=== PATIENT | female | born 1955 | race Caucasian/White ===

== ENCOUNTER → 2023-08-30 07:43 | Outpatient (REF) | payer MEDICARE, BC, SELFPAY | LOC: HWRAD 07:43 | PROVIDERS: ATTENDING PHYSICIAN Internal Medicine Gastroenterology; FAMILY PHYSICIAN Family Medicine | DX: K76.0 Fatty (change of) liver, not elsewhere classified (principal) | CPT/HCPCS: 76700 ==

== ENCOUNTER → 2023-10-18 11:08 | Outpatient (REF) | payer MEDICARE, BC, SELFPAY ==
[2023-10-18 16:07] LABS: % Basophils 0.3 % (0-2); % Eosinophils 1.3 % (0-6); % Immature Granulocytes 0.1 % (0-0.5); % Lymphocytes 35.5 % (20.5-51.1); % Monocytes 11.2 % (1.7-9.3); % Neutrophils 51.6 % (42.2-75.2); Absolute Eosinophils 0.1 10^3/uL (0-0.7); Absolute Lymphocytes 2.5 10^3/uL (1.2-3.4); Absolute Monocytes 0.8 10^3/uL (0.1-0.6); Absolute Neutrophils 3.6 10^3/uL (1.4-6.5); Hematocrit 47.2 % (37.0-47.0); Hemoglobin 15.9 g/dL (12.0-16.0); Mean Corp Hgb Conc. 33.7 g/dL (33.0-37.0); Mean Corpuscular Hgb 31.5 pg (27.0-31.0); Mean Corpuscular Volume 93.5 fL (81.0-99.0); Mean Platelet Volume 10.4 fL (7.4-10.4); Nucleated Red Blood Cells % 0 %; Platelet Count 234 10^3/uL (130-400); Red Blood Cell Count 5.05 10^6/uL (4.20-5.40); Red Cell Dist. Width 12.8 % (11.5-14.5); White Blood Cell Count 6.9 10^3/uL (4.8-10.8)
[2023-10-18 16:35] LABS: Iron 138 ug/dl (37-170)
[2023-10-18 16:46] LABS: Percent Saturation 63 % (20-50); Total Iron Binding Capacity 219 ug/dl (265-497)
[2023-10-18 17:12] LABS: Ferritin 35.4 ng/ml (11.1-264.0)
== END ==
LOC: HWLAB 11:08
PROVIDERS: ATTENDING PHYSICIAN Internal Medicine Hematology & Oncology; FAMILY PHYSICIAN Family Medicine
DX: E83.110 Hereditary hemochromatosis (principal)
CPT/HCPCS: 36415; 82728; 83540; 83550; 85025

== ENCOUNTER → 2024-09-01 12:49 | Outpatient (REF) | payer MEDICARE, BC, SELFPAY | LOC: MRI 3T 12:49 | PROVIDERS: ATTENDING PHYSICIAN Internal Medicine Gastroenterology; FAMILY PHYSICIAN Family Medicine | DX: K76.89 Other specified diseases of liver (principal) | CPT/HCPCS: 74183; A9575 ==

== ENCOUNTER → 2024-10-12 10:15 | Outpatient (REF) | payer MEDICARE, BC, SELFPAY | LOC: SDSPAT 10:15 | PROVIDERS: ATTENDING PHYSICIAN Surgery; FAMILY PHYSICIAN Family Medicine | DX: K80.50 Calculus of bile duct without cholangitis or cholecystitis without obstruction (principal) | CPT/HCPCS: 36415; 93005 ==

== ENCOUNTER 2024-11-02 06:18 | Day surgery (SDC) | payer MEDICARE, BC, SELFPAY ==
[2024-10-12 14:09] VITALS: BMI 29.3
[2024-11-02] VITALS (10 sets, daily range): BP systolic 146–178; BP diastolic 65–77; BMI 29.3
[2024-11-02] MEDS: TYLENOL 1000 MG PO (11:25)
[2024-11-02] MEDS: IC GREEN 2.5 MG IV (11:26)
[2024-11-02] MEDS: HEPARIN 5000 UNITS SC (11:26)
[2024-11-02] MEDS: EMEND 40 MG PO (11:47)
[2024-11-02] MEDS: TRANSDERM-SCOP 1 PATCH TRANSDERM (11:48)
[2024-11-02] MEDS: NORMOSOL-R/PLASMALYTE-A 1000 IV (11:48)
--- NOTE | 2024-11-02 13:23 | OR.RPT ---
Operative Report
Operative Report
Primary Surgeon: Seun
Assisting: Idris MEADE
Pre-op Diagnosis: Biliary colic
Post-op Diagnosis: Same
Procedure Performed: Robot assisted laparoscopic cholecystectomy
Anesthesia Type: GETA
Specimen / Cultures: Gallbladder
Estimated Blood Loss: 2cc
Complications: None immediate
Operative Findings: Softly distended floppy gallbladder
Date of Surgery:� 11/02/24
Indications: This 69F developed symptomatic cholelithiasis. Lab work showed normal liver enzymes. Imaging showed no ductal dilation. Laparoscopic cholecystectomy with robotic assist was elected.
Description of procedure: The patient was placed on the operating table in the supine position. General anesthesia was induced. A time-out was completed verifying correct patient, procedure, site, positioning, and special equipment prior to
beginning this procedure. An orogastric tube was placed. The abdomen was prepped and draped in the usual sterile fashion. A stab incision was made in left upper quadrant and the Veress needle was inserted. Proper position was confirmed by aspiration
and saline meniscus test. The abdomen was insufflated with carbon dioxide to a pressure of 12mmHg. The patient tolerated insufflation well.
A 8mm trocar was then inserted above the umbilicus through the existing hernia defect. The laparoscope was inserted and the abdomen inspected. No injuries from initial trocar placement or Veress needle insertion were noted. Additional 8mm trocars
were then inserted in the following locations: two in the right lower quadrant and to the left of the umbilicus and just above. The abdomen was inspected and no abnormalities were found. The table was placed in the reverse Trendelenburg position
with the right side up. The dome of the gallbladder was grasped with an atraumatic grasper and retracted over the dome of the liver. The infundibulum was then grasped with an atraumatic grasper and retracted toward the right lower quadrant. This
maneuver exposed Calot�s triangle. The gallbladder was notably elongated. The peritoneum overlying the gallbladder infundibulum was then incised and the cystic duct and cystic artery identified and circumferentially dissected so that a clear view of
the liver was achieved through a window between the cystic duct an cystic artery. At this time, the only two structures going into the gallbladder were the cystic artery and cystic duct. The common duct was identified with ICG and protected.
The cystic duct was then doubly clipped and divided. The cystic artery was controlled with bipolar and divided. The gallbladder was then dissected from its peritoneal attachments by electrocautery. The gallbladder was removed using an endoscopic
retrieval bag placed through the umbilical port. The gallbladder was passed off the table as a specimen. The gallbladder fossa was closely inspected. There was no evidence of bleeding from the gallbladder fossa or cystic artery or leakage of the
bile from the cystic duct stump. The umbilical trocar site was closed at the fascial level with 2-0 PDS. Secondary trocars were removed under direct vision and noted to be hemostatic. The abdomen was allowed to collapse. The skin was closed with
subcuticular sutures of 4-0 monocryl and topical skin adhesive. The orogastric tube was removed.
The patient tolerated the procedure well and was taken to the postanesthesia care unit in stable condition.
[2024-11-02] MEDS: DILAUDID 0.5 MG IV ×2 (13:54→14:17)
[2024-11-02] MEDS: ZOFRAN 4 MG IV (13:58)
[2024-11-02] MEDS: COMPAZINE 5 MG IV (14:28)
== END 2024-11-02 16:40 | disposition home or self-care (01) ==
LOC: SDS 06:18
PROVIDERS: ATTENDING PHYSICIAN Surgery; FAMILY PHYSICIAN Family Medicine
DX: K81.1 Chronic cholecystitis (principal)
CPT/HCPCS: 47562; 88304

== ENCOUNTER → 2025-04-21 14:53 | Outpatient (REF) | payer MEDICARE, BC, SELFPAY | LOC: RAD 14:53 | PROVIDERS: ATTENDING PHYSICIAN Family Medicine | DX: M54.2 Cervicalgia (principal) | CPT/HCPCS: 72050; 73030 ==

== ENCOUNTER → 2025-06-14 06:38 | Outpatient (REF) | payer MEDICARE, BC, SELFPAY | LOC: MRI 06:38 | PROVIDERS: ATTENDING PHYSICIAN Physician Assistant Surgical; FAMILY PHYSICIAN Family Medicine | DX: M54.12 Radiculopathy, cervical region (principal); M54.2 Cervicalgia | CPT/HCPCS: 72141 ==